=== PATIENT | female | born 1985 ===

== ENCOUNTER 2020-12-01 06:07 | Inpatient (IN) ==
--- NOTE | 2020-11-16 10:26 | PAT Medication Instructions ---
Medication Instructions Date of Service November 16, 2020 Home Medications bupropion HCl 75 mg PO BID Take morning of surgery With a small sip of water, OTHERWISE NOTHING TO EAT OR DRINK AFTER MIDNIGHT: bupropion HCl 75 mg PO BID Take evening before surgery bupropion HCl 75 mg PO BID Other Notes If you have any questions please call us at [phone] or [phone] or [phone] or [phone]
--- NOTE | 2020-11-17 11:28 | Anesthesiology Consultation ---
Date of Service November 17, 2020 Assessment & Plan (1) Encounter for pre-operative examination: COVID Status: As of 11/17 assessment, patient denies travel to endemic area, known exposure/sick contacts, or symptoms of COVID19. Patient instructed that they and their household members must follow strict social distancing guidelines, wear a mask in public and avoid travel/events/gatherings for 14 days prior to surgery. Preoperative COVID19 testing to be completed prior to surgery per surgeon's arrangements (pt aware). Patient made aware to self-isolate as much as possible between COVID testing and surgery. 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 Pt is fully vaccinated, and patients are screened prior to coming into her office. HTN on exam at [facility] -- pt reports she is to see PCP for clearance and possibly start a BP med prior to surgery. Will obtain note. Chart Review Chart Review: Acceptable Risk for Surgery (pending PCP clearance) and Patient se en in Pre Admission Testing Teaching & Discussion Instructed NPO after midnight before surgery, except medications with 15 cc of water. Medication instructions provided according to the [facility] guidelines. History Surgery Operation Date: 12/01/20 07:45 Proposed Procedures p L3-LS1 Posterior Decompression and Fusion - Enoch Velez, Height/Weight Height: 5 ft 4 in Weight: 121.3 kg Allergies Allergy/AdvReac Type Severity Reaction Status Date / Time benzonatate AdvReac Intermediate worsened Verified 11/01/20 12:35 [From Lisa Burks] cough Sulfa (Sulfonamide AdvReac Intermediate joint Verified 11/01/20 12:35 Antibiotics) swelling Medications Home Medications Medication Instructions Recorded Confirmed Last Taken bupropion HCl 75 mg PO BID 08/20/20 11/01/20 08/26/20 20:00 Past Medical History Medical History Anxiety Depression Morbid obesity Protein S deficiency no personal hx thromboembolism Exercise / Class Metabolic Activity II 4-5 Yardwork/Stairs/Walk up hill Past Family History Family History Grandfather (Paternal) Diabetes Past Surgical History Surgical History H/O tubal ligation History of dilatation and curettage History of endometrial ablation 08/27/20 [facility] [place] teeth extracted Past Anesthesia History No Hx of Anesthesia Complications and No Family Hx of Anesthesia Complications History of PONV No Hx of PONV and Hx of Motion Sickness Social History Smoking Status: Never smoker Do You Dip or Chew Tobacco: No Hx Alcohol Use: Yes Alcohol type: wine alcohol intake frequency: a few times a month Hx Substance Use: No substance use type: does not use Review of Systems Pt denies any recent chest pain, shortness of breath, palpitations, cough, fever, URI, or uncontrolled acid reflux. Physical Exam Vital Signs BP: 151/103 -- pt will be seeing PCP for clearance prior to surgery, they are aware BP has been elevated lately and may initiate medical therapy. P: 87bpm SPO2: 96% RA T: 98.1 F R: 16 ENMT Mouth: no dental restorations, no chipped teeth and no loose teeth Thyromental Distance: > or= 3.5 Finger Breadths Mallampati Class: I Neck + thick neck; neck extension not limited Respiratory normal respiratory effort, lungs clear to auscultation Cardiovascular RRR, no murmur, no edema Testing Laboratory Results 11/17/20 11:40 11/17/20 11:40 PT 10.3 Seconds (9.0-12.0) 11/17/20 11:40 INR 1.0 (0.9-1.1) 11/17/20 11:40 APTT 27.6 Seconds (21.0-31.0) 11/17/20 11:40 Urine Color Yellow 11/17/20 11:40 Urine Appearance Clear (Clear) 11/17/20 11:40 Urine pH 6.5 (4.5-7.5) 11/17/20 11:40 Ur Specific [place] 1.022 (1.000-1.030) 11/17/20 11:40 Urine Protein Negative (Negative) 11/17/20 11:40 Urine Glucose (UA) Negative (Negative) 11/17/20 11:40 Urine Ketones Trace (Negative) H 11/17/20 11:40 Urine Nitrite Negative (Negative) 11/17/20 11:40 Ur Leukocyte Esterase Negative (Negative) 11/17/20 11:40 Blood Type O Positive 11/17/20 11:40 Antibody Screen NEGATIVE 11/17/20 11:40 Electrocardiogram Date: 08/23/20 Findings: + NSR @ (82bpm) Chest X-Ray Date: 11/17/20 Findings: + R hemidiaphragm elevation (mild)
--- NOTE | 2020-11-17 12:05 | XRay Report ---
XR chest Pre-admission PA/Lat HISTORY: 35 years-old Female pat chronic back pain COMPARISON: None TECHNIQUE: PA and lateral views of the chest FINDINGS: Cardiomediastinal and hilar silhouettes are within normal limits. No pneumothorax, pleural effusion, airspace consolidation or overt pulmonary edema. The bones of the chest appear normal. Mild right hem idiaphragmatic elevation. IMPRESSION: No acute process. ACT 112: Negative or not required by law. The above report was generated using voice recognition software. It may contain grammatical, syntax o r spelling errors. Electronically signed by: Ubaldo Brcue M.D. 11/17/2020 12:04 PM
[2020-11-17 12:22] LABS: Appearance Urine Clear (Clear); Bilirubin Urine Negative (Negative); Blood Urine Negative (Negative); Color Urine Yellow; Glucose Urine UA Negative (Negative); Ketones Urine Trace (Negative); Leukocyte Esterase Urine Negative (Negative); Nitrite Urine Negative (Negative); Protein Urine Negative (Negative); Specific Gravity Urine 1.022 (1.000-1.030); Urobilinogen Urine Negative (Negative); pH Urine 6.5 (4.5-7.5)
[2020-11-17 12:26] LABS: Partial Thromboplastin Time 27.6 Seconds (21.0-31.0); Prothrombin Time 10.3 Seconds (9.0-12.0)
[2020-11-17 12:51] LABS: Basophils # (auto) 0.03 K/uL (0-0.2); Basophils % (auto) 0.4 %; Eosinophils % (auto) 1.4 %; Hematocrit (blood only) 42.1 % (37-47); Hemoglobin 14.9 g/dL (12.0-16.0); Immature Granulocytes # (auto) 0.02 K/uL (0.00-0.02); Immature Granulocytes % (auto) 0.3 %; Lymphocytes # (auto) 2.26 K/uL (1.2-3.4); Lymphocytes % (auto) 32.2 %; Mean Corpuscular Hemoglobin 33.2 pg (25-34); Mean Corpuscular Hgb Conc 35.4 g/dL (32-36); Mean Corpuscular Volume 93.8 fL (80-100); Mean Platelet Volume 10.9 fL (7.4-10.4); Monocytes % (auto) 8.5 %; Neutrophils # (auto) 4.01 K/uL (1.4-6.5); Neutrophils % (auto) 57.2 %; Platelet Count 295 K/uL (130-400); RDW Coefficient of Variation 13.1 % (11.5-14.5); RDW Standard Deviation 45.3 fL (36.4-46.3); Red Blood Count 4.49 M/uL (4.2-5.4); White Blood Count 7.02 K/uL (4.8-10.8)
[2020-11-17 13:24] LABS: BUN Creatinine Ratio 22.3 (10-20); Calcium 8.5 mg/dl (8.5-10.1); Creatinine Clr Calc Pharmacy 152.8 ml/min; Est GFR (African American) 132.6; Est GFR (Non-African American) 114.4; Potassium 3.9 mmol/L (3.5-5.1)
[~2020-12-01 06:07] MED LIST: ACETAMINOPHEN 500 MG TAB PO SCH; CeleBREX 200 MG CAP PO SCH; GABAPENTIN 900 MG DOSE PO SCH; LR 15ML/HR IV SCH
[2020-12-01] MEDS ORDERED: DEXAMETHASONE SOD INJ 4 MG/ML VIAL ONE (06:41)
[2020-12-01] MEDS ORDERED: NEOSTIGMINE METHYLSULFATE 1 MG/ML 10ML VIAL ONE (06:41)
[2020-12-01] MEDS ORDERED: MIDAZOLAM HCL 1 MG/ML 2ML VIAL ONE (06:41)
[2020-12-01] MEDS ORDERED: fentaNYL citrate 100 MCG/2 ML VIAL ONE (06:41)
[2020-12-01] MEDS ORDERED: ONDANSETRON INJ 2 MG/ML 2 ML VIAL ONE ×2 (06:41→09:42)
[2020-12-01] MEDS ORDERED: GLYCOPYRROLATE 0.2 MG/ML VIAL ONE ×2 (06:41→09:41)
[2020-12-01] MEDS ORDERED: PROPOFOL IV EMULSION 10 MG/ML 20 ML VIAL IV ONE (06:41)
[2020-12-01] MEDS ORDERED: LIDOCAINE HCL 2% 2 ML VIAL/AMP(20MG/ML) INFIL ONE (06:41)
[2020-12-01] MEDS ORDERED: ROCURONIUM BROMIDE 10 MG/ML 5 ML VIAL IV ONE ×4 (06:48→09:41)
[2020-12-01] MEDS ORDERED: BUPIVACAINE/EPINEPHRINE 0.5% MPF 1:200,000 30 ML VIAL ONE (07:05)
[2020-12-01] MEDS ORDERED: ONDANSETRON INJ 2 MG/ML 2 ML VIAL IV PRN ×2 (07:27→11:34)
[2020-12-01] MEDS ORDERED: ATROPINE SULFATE 0.1 MG/ML 10ML SYR IV PRN (07:27)
[2020-12-01] MEDS ORDERED: ePHEDrine sulfate 50 MG/ML AMP IV PRN (07:27)
[2020-12-01] MEDS ORDERED: PROMETHAZINE HCL 6.25 MG in SODIUM CHLORIDE 0.9% 50 ML IV PRN (07:27)
[2020-12-01] MEDS ORDERED: HYDROmorphone INJ 1 MG/ML SYRINGE IV PRN ×2 (07:27→11:34)
--- NOTE | 2020-12-01 07:35 | History & Physical Report ---
Date of Service December 01, 2020 Assessment & Plan (1) Neurogenic claudication due to lumbar spinal stenosis: Admission and Anticipated Discharge Date Admission Date: L3-S1 posterior decompression fusion History of Present Illness Chief Complaint: Back and leg pain Primary Care Provider: Alpesh Matthew DO This is a 34-year-old female presents with car persistent back and leg pain. Failing course of nonoperative care she is here for surgical invention. Allergies Allergy/AdvReac Type Severity Reaction Status Date / Time benzonatate AdvReac Intermediate worsened Verified 11/01/20 12:35 [From Tessalon Kimmie] cough Sulfa (Sulfonamide AdvReac Intermediate joint Verified 11/01/20 12:35 Antibiotics) swelling Home Medications Medication Instructions Recorded Confirmed Type amlodipine 10 mg QPM 11/24/20 12/01/20 History paroxetine HCl [Paxil] 20 mg PO DAILY 12/01/20 12/01/20 History Past Med/Surg History Medical History (Updated 12/01/20 @ 07:35 by Enoch Velez DO) Anxiety Depression Hypertension Morbid obesity Protein S deficiency no personal hx thromboembolism Surgical History H/O tubal ligation History of dilatation and curettage History of endometrial ablation 08/27/20 [facility] [place] teeth extracted Family History Grandfather (Paternal) Diabetes Social History Smoking Status: Never smoker Second Hand Exposure: No; Do You Dip or Chew Tobacco: No; Hx Alcohol Use: Yes Alcohol type: wine Hx Substance Use: No Preferred Language: Kyrgyz Communication Ability: Effective Order Entry Representative Required: No Beliefs That Will Affect Care: None Current Living Situation: Spouse and Family Feels Safe at Home: Yes Safety Concerns: Feels Safe At This Time Assistive Devices: Contacts and Glasses Physical Exam Physical Exam: Patient is alert and oriented Heart regular in rhythm Lungs clear to auscultation Results & Data ([facility]) Vital Signs (Past 12 Hours) Vital Signs Temp Pulse Resp BP Pulse Ox 12/01/20 06:33 36.8 C 96 H 20 153/102 H 94
--- NOTE | 2020-12-01 07:35 | History & Physical Bridge Note ---
Date of Service December 01, 2020 History & Physical Bridge Note I have examined the patient, reviewed the History & Physical and in the interval since the performance of the History & Physical I have noted the following changes of clinical significance: no changes noted
[2020-12-01] MEDS ORDERED: HYDROmorphone INJ 2 MG/ML SYR/VIAL ONE (08:14)
[2020-12-01] MEDS ORDERED: FLOSEAL HEMOSTATIC MATRIX 10ML TOP ONE (09:42)
--- NOTE | 2020-12-01 09:52 | Operative Report ---
Post Operative Report Pre & Post Diagnosis Operation Date: 12/01/20 07:45 Pre-Op Diagnosis: Neurogenic Claudication due to Lumbar Spinal Stenosis Spondylolisthesis L5-S1. Morbid obesity Post-Op Diagnosis: Same I identified the patient and participated in the time-out.: Yes Procedure Operation Date: 12/01/20 07:45 Actual Procedures #1 lumbar decompression with bilateral medial facetectomies and foraminotomies L3-4, L4-5 and L5-S1. #2 posterior spinal fusion L3-4, L4-5 and L5-S1. #3 placement posterior segmental instrumentation L3-S1. #4 interbody fusion L3-4, L4-5 and L5-S1. #5 placement peek cage 11 x 26 mm at L3-4, 9 x 26 mm at L4-5, 13 x 26 mm at L5-S1. #6 placement locally harvested morselized autograft in the posterior gutters. #7 placement infuse collagen sponge, master graft in the posterior lateral gutters and I factor in the interbody spaces. Surgeon Enoch Velez, DO Wire Taper Radha Thompson Estimated Blood Loss 100 Findings See Below The patient is 5 foot 4 inches tall weighing over 119 kg with a BMI in excess of 45. The patient's body habitus did contribute to significant technical difficulty requiring her deepest retractors and longus instruments in order to perform the procedure. This at least 50% increase to the operative time. Specimens None Indications This is a 35-year-old female who presents with above-mentioned diagnosis after failing course of nonoperative care she is here for surgical invention. Description of Procedure Patient was met with identified informed consent obtained. Patient was then taken to the operative suite underwent a patient placed in a prone position Kamran table total spine frame. All bony prominences well-padded eyes inspected to ensure no external pressure placed upon the. This point lumbar spine was prepped and draped in a sterile fashion. Sharp dissection with the assistance of Bovie cartilage form down to and exposing the lamina and transverse processes of L3-L4-L5 and sacral ala bilaterally. Obvious bilateral pars defect at L5 was noted. A complete laminectomy of L5 L4 and L3 was performed from caudal cephalad fashion including bilateral medial facetectomies and foraminotomies addressing severe neural compression. Pedicle screws were then placed in L3-L4-L5 and S1 levels bilaterally with assistance of fluoroscopy the proper sized farshad placed. Believe a transforaminal approach on the right complete discectomy of L5-S1 was performed endplates curetted to subcortically bone and a 13 x 26 mm peek cage filled I factor tapped in position. Then proceeded L4-L5 and again by way of a transforaminal portion right complete discectomy performed endplates curetted to subcortically bone and a 9 x 26 mm peek cage filled with I factor tapped in position. Lastly I approached the L3-[address] of a transforaminal approach on right complete disc ectomy performed endplates curetted to subcortical being bone and a 11 x 26 mm peek cage filled with I factor tapped in position. The rods were then locked in final position bilaterally. The transverse processes of L3-L4-L5 and the sacral ala burred to subcortical bleeding bone. Infuse collagen sponge master graft local autograft was placed in the posterior gutters. 15 round XU drain inserted. The incision was then closed with 1 Vicryl fascia 2-0 Vicryl subcutaneously and 4 Monocryl for final skin closure. Steri-Strip sterile dressings placed. Patient will continue PACU stable condition. Please note spinal cord monitoring was utilized at the procedure no changes noted. Lastly Radha Thompson was present at the entire surgery involved the patient positioning complex portions of the surgery and final skin closure. I attest to the content of the Intraoperative Record and any orders documented therein. Any exceptions are noted below.
[2020-12-01] MEDS: fentaNYL citrate 100 MCG/2 ML VIAL IV PRN ×2 (10:37→10:42)
--- NOTE | 2020-12-01 11:12 | Anesthesiology Progress Note ---
Date of Service December 01, 2020 Anesthesia Post Procedure Vital Signs Vital Signs: Temp Pulse Pulse Resp BP Pulse Ox 12/01/20 11:00 36.8 C 91 H 15 145/75 H 97 12/01/20 10:50 88 16 145/86 H 94 12/01/20 10:40 93 H 15 157/85 H 93 12/01/20 10:30 98 H 16 122/88 98 12/01/20 10:20 96 H 18 160/90 H 98 12/01/20 10:10 36.6 C 114 H 16 146/98 H 96 12/01/20 06:33 36.8 C 96 H 20 153/102 H 94 Pain Intensity Lower Back: Pain Intensity: 3 Transfer of Care Handoff Completed per policy Notes Mental Status: alert / awake / arousable Patient Amnestic to Procedure: Yes Nausea / Vomiting: adequately controlled Pain: adequately controlled Airway Patency, RR, SpO2: stable & adequate BP & HR: stable & adequate Hydration State: stable & adequate Anesthetic Complications: no major complications apparent
[2020-12-01] MEDS ORDERED: SOD PHOSPHATE/SOD BIPHOSPHATE ENEMA 132 ML BTL PR PRN (11:34)
[2020-12-01] MEDS ORDERED: PROMETHAZINE HCL 12.5 MG in SODIUM CHLORIDE 0.9% 50 ML IV PRN (11:34)
[2020-12-01] MEDS ORDERED: ONDANSETRON 4 MG OD TAB PO PRN (11:34)
[2020-12-01] MEDS ORDERED: DO NOT ADMINISTER FLU VACCINE PRN (11:34)
[2020-12-01] MEDS ORDERED: bisacodyL 10 MG SUPP PR PRN (11:34)
[2020-12-01] MEDS ORDERED: HYDROmorphone INJ 0.5 MG/0.5 ML SYR IV PRN (11:34)
[2020-12-01] MEDS ORDERED: LORazepam 0.5 MG/1 ML VIAL IV PRN (11:34)
[2020-12-01] MEDS ORDERED: ACETAMINOPHEN 1,000 MG/100 ML VIAL IV PRN (11:34)
[2020-12-01] MEDS ORDERED: METOCLOPRAMIDE HCL INJ 5 MG/ML 2 ML VIAL IV PRN (11:34)
[2020-12-01] MEDS ORDERED: DO NOT ADMINISTER PNEUMOCOCCAL VACCINE PRN (11:34)
[2020-12-01] MEDS ORDERED: LORazepam 0.5 MG TAB PO PRN (11:34)
[2020-12-01] MEDS ORDERED: ALUMINUM/MAGNESIUM SUSP 30 ML UDC PO PRN (11:34)
[2020-12-01] MEDS ORDERED: oxyCODONE HCL IR 5 MG TAB (IMMEDIATE RELEASE) PO PRN (11:34)
[2020-12-01] MEDS ORDERED: MAGNESIUM HYDROXIDE SUSP 30 ML UDC PO PRN (11:34)
[2020-12-01] MEDS ORDERED: hydrOXYzine HCl 25 MG TAB PO PRN (11:34)
[2020-12-01] MEDS ORDERED: NALOXONE HCL 0.4 MG/1 ML VIAL/CARP IV PRN (11:34)
[2020-12-01] MEDS ORDERED: FAMOTIDINE 20 MG TAB PO PRN (11:34)
[2020-12-01] MEDS ORDERED: diphenhydrAMINE Capsule 25 MG CAP PO PRN (11:34)
[2020-12-01] MEDS: KETOROLAC 30 MG/ML VIAL IV SCH ×2 (12:50→18:07)
--- NOTE | 2020-12-01 12:57 | Fluoroscopy Report ---
FL lumbar spine 2-3V CLINICAL HISTORY: L3-S1 PSF AND DECOMPRESSION COMPARISON STUDY: None FLUOROSCOPY TIME: 45 seconds. NUMBER OF FLUOROSCOPIC IMAGES: 2 FINDINGS: 2 fluoroscopic spot images reveal postsurgical changes of L3-4, L4-5, and L5-S1 discectomie s interbody fusions. There is a posterior spinal decompression with pedicle screw fusion at the L3-S1 level. IMPRESSION: Postsurgical changes of an L3-S1 spinal decompression and fusion ACT 112: Negative or not required by law. Electronically signed by: Eugene Avila M.D. 12/01/2020 12:56 PM
[2020-12-01] MEDS: LACTATED RINGER'S 1,000 ML IV SCH ×2 (13:43→20:08)
[2020-12-01] MEDS: ceFAZolin 2000MG 2,000 MG/15 ML SYR IV SCH (16:16)
[2020-12-01] MEDS: amLODIPine BESYLATE 5 MG TAB PO SCH (20:32)
[2020-12-01] MEDS: DOCUSATE SODIUM/SENNA 50/8.6MG TAB PO SCH (20:32)
[2020-12-01] MEDS: traMADol HCL 50 MG TABLET PO PRN (21:30)
[2020-12-02] MEDS: ceFAZolin 2000MG 2,000 MG/15 ML SYR IV SCH (00:06)
[2020-12-02] MEDS: KETOROLAC 30 MG/ML VIAL IV SCH ×2 (00:06→05:47)
[2020-12-02] MEDS: LACTATED RINGER'S 1,000 ML IV SCH (02:58)
[2020-12-02] MEDS: POLYETHYLENE (MIRALAX) 17 GM PACK PO SCH ×3 (05:47→17:40)
[2020-12-02 06:04] LABS: Basophils # (auto) 0.01 K/uL (0-0.2); Basophils % (auto) 0.1 %; Hematocrit (blood only) 34.4 % (37-47); Hemoglobin 12.3 g/dL (12.0-16.0); Immature Granulocytes # (auto) 0.02 K/uL (0.00-0.02); Immature Granulocytes % (auto) 0.3 %; Lymphocytes # (auto) 1.32 K/uL (1.2-3.4); Lymphocytes % (auto) 17.6 %; Mean Corpuscular Hemoglobin 33.7 pg (25-34); Mean Corpuscular Hgb Conc 35.8 g/dL (32-36); Mean Corpuscular Volume 94.2 fL (80-100); Mean Platelet Volume 10.8 fL (7.4-10.4); Monocytes # (auto) 0.64 K/uL (0.11-0.59); Monocytes % (auto) 8.5 %; Neutrophils # (auto) 5.53 K/uL (1.4-6.5); Neutrophils % (auto) 73.5 %; Platelet Count 257 K/uL (130-400); RDW Coefficient of Variation 12.6 % (11.5-14.5); RDW Standard Deviation 43.6 fL (36.4-46.3); Red Blood Count 3.65 M/uL (4.2-5.4); White Blood Count 7.52 K/uL (4.8-10.8)
[2020-12-02 06:36] LABS: BUN Creatinine Ratio 15.3 (10-20); Calcium 8.3 mg/dl (8.5-10.1); Creatinine Clr Calc Pharmacy 149.3 ml/min; Est GFR (Non-African American) 113.9; Potassium 3.6 mmol/L (3.5-5.1)
[2020-12-02] MEDS: PARoxetine HCL 20 MG TAB PO SCH (08:20)
[2020-12-02] MEDS: traMADol HCL 50 MG TABLET PO PRN ×3 (08:20→17:57)
--- NOTE | 2020-12-02 08:32 | Orthopedic Progress Note ---
Date of Service December 02, 2020 Assessment & Plan (1) Neurogenic claudication due to lumbar spinal stenosis: Admission and Anticipated Discharge Date Admission Date: December 01, 2020 At this time continue physical therapy monitor XU operatively discharge home the next day or so. Subjective Patient's back pain is controlled leg symptoms markedly improved. Physical Exam Physical Exam: Patient is in the chair at the bedside. She has good strength testing. Appears comfortable. Results & Data ([facility]) Vital Signs (Past 12 Hours) Vital Signs Temp Pulse Resp BP BP Pulse Ox 12/02/20 07:25 36.9 C 86 17 138/85 95 12/02/20 02:50 36.9 C 94 H 16 108/70 93 12/01/20 22:24 36.9 C 92 H 16 131/85 92
[2020-12-02] MEDS ORDERED: dexAMETHasone 8 MG in SYRINGE 0 ML IV SCH (09:00)
[2020-12-02] MEDS: ACETAMINOPHEN 500 MG TAB PO PRN ×2 (11:40→20:33)
[2020-12-02] MEDS: amLODIPine BESYLATE 5 MG TAB PO SCH (20:30)
[2020-12-02] MEDS: DOCUSATE SODIUM/SENNA 50/8.6MG TAB PO SCH (20:31)
[2020-12-03] MEDS: POLYETHYLENE (MIRALAX) 17 GM PACK PO SCH ×2 (01:16→05:30)
[2020-12-03] MEDS: traMADol HCL 50 MG TABLET PO PRN ×3 (01:53→12:07)
[2020-12-03] MEDS: PARoxetine HCL 20 MG TAB PO SCH (07:43)
[2020-12-03] MEDS: ACETAMINOPHEN 500 MG TAB PO PRN (10:13)
--- NOTE | 2020-12-03 10:15 | Discharge Summary ---
Date of Service December 03, 2020 Admission HPI Per Admitting Provider This is a 34-year-old female presents with car persistent back and leg pain. Failing course of nonoperative care she is here for surgical invention. Principal Diagnosis Lumbar spinal stenosis with spondylolisthesis Discharge Data Allergies Allergy/AdvReac Type Severity Reaction Status Date / Time benzonatate AdvReac Intermediate worsened Verified 11/01/20 12:35 [From Tessalon Perles] cough Sulfa (Sulfonamide AdvReac Intermediate joint Verified 11/01/20 12:35 Antibiotics) swelling Procedures Performed Operation Date: 12/01/20 07:45 Actual Procedures p L3-S1 Posterior Decompression and Fusion with Insertion of Interbodies at L3- L4, L4-L5, and L5-S1, Application of Bone Morphogenetic Protein, Spinal Cord Monitoring(Not Applicable) - Enoch Velez DO Ordered Studies 12/01/20 07:45 [place] lumbar spine 2-3V Routine Hospital Course (1) Neurogenic claudication due to lumbar spinal stenosis: Patient went lumbar decompression fusion tolerates well second orthopedic for postoperative. Postop day 1 she was up and ambulating leg pain markedly improved progressed to postop day #2. XU drain decreasing probably. Pain well controlled. Subsequently discharged home. Discharge orders instructions were on the chart for further review. Total Time Total Time Spent Total Time Spent (In Minutes): 20 minutes Discharge Plan Discharge Items Patient Disposition: Home - Self-Care Reason For Visit: Other Intervertebral Disc Degenerative, Lumbar Reg Discharge Diagnosis: Lumbar spinal stenosis with neurogenic claudication Activity: As commented below Non-emergency contact: Primary Care Provider Call non-emergency contact if: you have any medication questions Follow-up/Referrals: Alpesh Matthew DO [Primary Care Provider] - Diet: Regular Addtl Attending Provider Instructions: ACTIVITY RECOMMENDATIONS: SELF CARE INSTRUCTIONS AFTER THORACIC/LUMBAR FUSIONS 1. You may walk to your tolerance. It is good exercise for your legs and back. Expect some back and intermittent leg aches and pains. 2. You may perform "counter-top" level activities (make a sandwich, zakia with a project, etc.). 3. No bending or lifting of more than 10 pounds or back twisting of any nature (roll like a log when turning in bed). 4. You may ride in a car for 20-30 minutes at a time. No driving until after your first visit with your doctor. 5. Frequent changes of position and restricting sitting to 30 minutes at a time will help limit the amount of back spasms and stiffness you may experience. 6. You may discontinue the use of ambulatory aids (cane, crutches, etc.) once your strength and confidence allow. 7. You may english composition instructor the shower and let water strike your incision when you arrive home at least once daily. Do not take a tub bath, sit in a hot tub or go into a swimming pool until after your first recheck in the office. SPECIAL CARE INSTRUCTIONS: VERY IMPORTANT TO READ AND REVIEW A. Your surgical incision has been closed with a cosmetic suture under the skin that will dissolve in about 6 weeks. In 14 days, you can use a pair of clean scissors and cut the suture that is left outside of the skin at the ends of your incision. 1. The small skin tapes can be removed 7 days after surgery if they have not fallen off by that point. 2. You may keep the wound open to air as much as possible to promote healing after post-op day number 5 unless told otherwise by your doctor. 3. If you think the wound looks like it is becoming infected (redness or worsening drainage) and/or you are experiencing fever, chill or worsening back pain and muscle spasms, contact the office so that we may evaluate you as soon as possible. B. Complications are uncommon, but please contact us if you have any signs or symptoms of: 1. wound infection (fever higher than 102.5 degrees F, redness, separation of wound, drainage, or increasing pain from the incision) 2. blood clots in legs (pain, swelling, redness and warmth in legs) 3. urinary tract infection (fever higher than 102.5 degrees F, burning upon urination or increased frequency of urination) 4. nerve problems (inability to walk on your toes or heels, numbness, loss of bowel or bladder control) 5. any other symptoms that concern you C. Please call the office at if you have any concerns or questions about your operation or recovery. D. No smoking! Smoking drastically decreases the chance of a solid fusion. E. Do not take any anti-inflammatory medications (Indocin, Advil, Motrin, Aspirin, Naprosyn, etc.) as these may inhibit the chance of a solid fusion. Tylenol is okay to take for pain. MANAGING PAIN AFTER SPINAL SURGERY 1. Narcotic medication is intended for short-term use and will be provided for surgical pain. Surgical pain usually lasts for a period of 4-6 weeks. Narcotic medication includes Percocet, Vicodin, Darvocet, Tylenol #3 or Lortab. 2. Longer-term pain is more appropriately treated with non-narcotic medication such as Tylenol ES. 3. Muscle spasm is not appropriately treated with narcotics. Muscle relaxers such as Soma, Flexeril or Skelaxin can be used along with Tylenol ES. 4. Remember that we all live with some "aches and pains". This is not unusual or uncommon after an injury or as we get older. a. Back pain is expected and may include muscle spasms for 4 to 6 weeks after surgery. The pain should gradually improve. If the pain worsens for no apparent reason, please contact the office. b. Intermittent leg pain may also be experienced and should not be concerned about unless it worsens for no apparent reason. If so, please contact the office. 5. We will provide appropriate medication within the normal guidelines of their prescribed use. We will also be very cautious and aware of potential abuse and extended duration of patients' medication needs. a. Pain medications are for your comfort and to assist with sleep and rest so that the tissue can heal. They are not provided in order to return to normal activity and should not be used through the day. To do so or worsening pain at night can result from ongoing tissue damage and development of tolerance to the prescribed medicine. 6. Please allow 2-3 days to process refills. Prescriptions will not be mailed but must be picked up at the office. FOLLOW UP VISIT: Keep your scheduled follow-up appointment. Any questions, please call the office at . Pending Studies at Discharge: No Stand-Alone Forms: My [facility], Smoking Cessation Medications and DC Order Prescriptions: New tramadol 50 mg tablet 50 mg PO Q6H PRN (Reason: pain, moderate) Qty: 30 RF: 0 oxycodone 5 mg tablet 5 mg PO Q6H PRN (Reason: pain, severe) Qty: 30 RF: 0 Continued amlodipine 5 mg Tablet 10 mg QPM RF: 0 paroxetine HCl [Paxil] 20 mg Tablet 20 mg PO DAILY RF: 0 Discharge Orders: Discharge Order (Routine); Ordered 12/03/20 Ordered By: Enoch Velez Admission Data Admit Date/Time: 12/01/20 10:27 Attending Provider: Enoch Velez Admit Provider: Enoch Velez Primary Care Provider: Alpesh Matthew
== END 2020-12-03 13:03 | disposition home or self-care (01) | DRG 454 ==
LOC: ASU 06:07 → 3E 10:27